=== PATIENT | male | born 2005 | race Caucasian/White ===

== ENCOUNTER 2025-07-11 20:37 | Emergency (ER) | payer OTHER, SELFPAY ==
[2025-07-11 20:41] VITALS: BP 140/93
--- NOTE | 2025-07-12 00:32 | ED.GENMED ---
History of Present Illness
General
Chief Complaint: Eye Problems
Source: patient
Exam Limitations: none
Time Seen by Provider: 07/12/25 00:18
Nursing documentation reviewed up to this point in time: agreed with
History of Present Illness
History of Present Illness:
Note:
CHIEF COMPLAINT(S)
Foreign body sensation in the right eye, tearing
HISTORY OF PRESENT ILLNESS
The patient is a 20-year-old male with no significant medical history presenting with a foreign body sensation in the right eye and tearing with intermittent redness. The symptoms began a few hours ago after a metal grinding activity. He was wearing
a hall at the time. After he took off the hall, he switched to grinding metal and was grinding metal with only protective glasses on and her reported that he got particles on his skin. The patient was wearing eye protection but removed it, and some
metal powder residue on the skin he believes he might have accidentally rubbed into the eye. The patient describes the sensation as if 'theres maybe something in the top of my eye.' Additionally, he noted a transient headache on the affected side.
He reports that after he thought he got the dust into his eye, he thoroughly irrigated his eye with water. He denies blurry vision,visual loss, dizziness. He saw an pig conveyor operator a few years ago and his exam was normal at that time. He currently
does not follow with one.
PHYSICAL EXAM
- Eye Examination: Mild abrasion noted on cornea with uptake of fluorescein dye, indicating small abrasions or 'dots,' but no significant foreign body visualized. No ulcers present. Inspected under the eyelid with no foreign bodies noted.
- Neurological: No dizziness or visual disturbances reported by the patient.
- Nursing notes reviewed and vital signs reviewed.
General: Patient is well appearing and in no acute distress; non-toxic
Skin: Warm and dry, no rashes or lesions
Head: Normocephalic, atraumatic
Eyes: Sclera non-icteric. EOMs intact. Mild sclera erythema on the right. PERRLA bilaterally. Visual Acquity grossly intact, peripheral visual silva intact. Fluorecin staining reveals 2 small dots of uptake in the lower corneal; negative Viky
sign. Right eyelid inverted with no evidence of foreign body. No evidence of corneal foreign body, no evidence of rust ring.
Cardiac: Regular rate
Pulm: Normal respiratory effort
Neuro: CN II-XII intact, no focal neurologic deficits.
Psychiatric: Appropriate mood and affect.
PLAN
- Administer topical anesthetic drops to alleviate discomfort.
- Prescribe antibiotic eye drops to prevent infection.
- Recommend the patient follow up with an pig conveyor operator urgently for corneal healing and further examination.
- Advise the patient to avoid activities that may exacerbate eye irritation and to use protective eyewear if engaging in similar activities again.
DIFFERENTIAL DIAGNOSIS
The Differential Diagnosis includes, in no particular order and is not limited to:
- Corneal abrasion
- Foreign body in the eye
- Conjunctivitis
- Ocular migraine
- Eye strain headache
- Sinus-related headache
- Dry eye syndrome
- Orbital cellulitis
- Corneal ulcer
- Acute angle-closure glaucoma
SUMMARY OF ENCOUNTER
The patient presented with a foreign body sensation in the right eye and scratching and tearign following working with metal. He was wearing eye protection at the time. Examination revealed mild corneal abrasions with no foreign body present.
Interventions included application of anesthetic drops for pain relief in the ER, and recommendations for antibiotic drops and ophthalmology follow-up were made.
MEDICATION RECONCILIATION
Antibiotic eye drops prescribed.
MDM/DISPOSITION
See above discussion. Patient stable for discharge. Discussed strict return precautions and advised patient to call Dr. Crowell's office for close follow up.
DIAGNOSIS
- Corneal abrasion of the right eye (ICD-10: S05.01XA)
Phy Exam
Physical Exam
Physical Exam:
see hpi
Course
Orders/Labs/Results
Orders:
Orders
07/12/25 00:55
Ofloxacin [Ocuflox] See Dose Instructions OPHTH QID ONE
07/12/25 01:13
Purified Water Eye Wash [Dacriose Eye Wash Solution] 120 ml .ROUTE .STK-MED ONE
Tetracaine HCl [Tetracaine 0.5% Ophthalmic Solution] 1 drop .ROUTE .STK-MED ONE
Vital Signs
Initial and Last Documented VS:
Initial Vital Signs
Temp Pulse Resp BP Pulse Ox
97.6 F 85 18 140/93 98
07/11/25 20:41 07/11/25 20:41 07/11/25 20:41 07/11/25 20:41 07/11/25 20:41
Last Documented Vital Signs
Temp Pulse Resp BP Pulse Ox
97.6 F 87 18 140/93 99
07/11/25 20:41 07/12/25 01:09 07/12/25 01:09 07/11/25 20:41 07/12/25 01:09
*Pulse Oximetry
SaO2: 98
Oxygen Mode of Delivery: Room air
Patient hypoxic: no
*Critical Care Note
Total Time (30-74mins, 75-104mins- exclusive of procedures): Not Applicable
ED Attending Note
-
Portions of this chart may have been created with voice recognition software.� Occasional wrong word or��sound alike� substitutions may have occurred due to the inherent limitations of voice recognition software.
Discharge Plan
Departure
Patient Disposition: Home (Routine Discharge)
Date of Disposition: 07/12/25
Time of Disposition: 01:01
Patient with high blood pressure during this ER visit?: Yes
Condition: Good
Discharge Problem:
Corneal abrasion
Instructions: Corneal Abrasion (DC), BLOOD PRESSURE
Prescriptions:
No Action
No Current Medications
0
Referrals:
Nathan Crowell MD [Active, Ophthalmology] - Call in 1-3 days for appt
Klaudia Bautista PA [Family Provider, Family Practice]
Activity Restrictions/Additional Instructions:
Please Instill 2 drops into the affected eye 4 times daily for 5 days.
Please call the attached number to schedule follow-up with ophthalmology. You can take Tyle Motrin as needed for pain.
PLEASE RETURN TO ER SHOULD YOU DEVELOP VISUAL LOSS, ACUTE WORSENING OF YOUR SYMPTOMS, DIZZINESS, LIGHTHEADEDNESS, CHEST PAIN, SHORTNESS OF BREATH, OR ANY OTHER SIGNS OR SYMPTOMS WORRISOME TO YOU.
Interventions
Interventions:
*General Assessment Last Done: 07/11/25 20:41
*Neglect/Abuse Screening Last Done: 07/11/25 20:41
*ED COVID-19 Vaccine History Last Done: 07/11/25 23:54
*ED Influenza Vaccine History Last Done: 07/11/25 23:54
[facility] Risk Assessment Tool Last Done: 07/11/25 23:53
*Risk Screen - Suicide (C-SSRS) Last Done: 07/11/25 20:41
*Nursing Disposition Last Done: 07/12/25 01:09
Discharge Date and Time
Discharge Date/Time: 07/12/25 01:09
Print Language: ARMENIAN
[2025-07-12] MEDS: OCUFLOX 2 DROP OPHTH (01:01)
== END 2025-07-12 01:09 | disposition home or self-care (01) ==
LOC: EMR 20:37
PROVIDERS: EMERGENCY PHYSICIAN Student in an Organized Health Care Education/Training Program; FAMILY PHYSICIAN Physician Assistant Medical
DX: S05.01XA Injury of conjunctiva and corneal abrasion without foreign body, right eye, initial encounter (principal); X58.XXXA Exposure to other specified factors, initial encounter
CPT/HCPCS: 99283